=== PATIENT | female | born 2000 | race Caucasian/White ===

== ENCOUNTER → 2020-01-09 17:25 | Outpatient (CLI) | payer MEDICAID, SELFPAY ==
[2020-01-09 20:01] LABS: Chlamydia Trachomatis by PCR Negative (Negative); Neisserai gonorrhoeae by PCR Negative (Negative); Probe Check PASS; Sample Adequacy Control PASS; Specimen Processing Control PASS
== END ==
PROVIDERS: Referring Provider Obstetrics & Gynecology; Visit Provider Obstetrics & Gynecology
DX: Z11.3 Encounter for screening for infections with a predominantly sexual mode of transmission (principal)
CPT/HCPCS: 87491; 87591

== ENCOUNTER → 2020-01-16 15:14 | Outpatient (CLI) | payer MEDICAID, SELFPAY ==
[2020-01-16 17:28] LABS: Color, Urine Yellow (Yellow); Glucose, Dipstick Normal (Normal); Ketone-Dipstick 50 mg/dl (Negative); Leukocyte Esterase-Dipstick 25 /ul (Negative); Nitrite-Dipstick Negative (Negative); Occult Blood-Urine Negative /ul (Negative); Protein-Dipstick Negative (Negative); Specific Gravity, Urine 1.015 (1.002-1.030); Urine Bilirubin Dipstick Negative (Negative); Urine Clarity Sl. Cloudy (Clear); Urine Urobilinogen Normal (Normal); Urine pH 6.5 (5.0 - 8.0)
[2020-01-16 17:31] LABS: Absolute Lymphocyte Count 3.04 X10^3/uL (0.83-4.51); Basophil# 0.03 X10^3/uL; Basophil% 0.2 % (0-1); Eosinophil# 0.21 X10^3/uL; Eosinophils% 1.6 % (0-5); Hematocrit 39.3 % (37-47); Hemoglobin 13.4 g/dL (12.0-15.0); Lymphocyte # 3.04 X10^3/ul (4.0); Mean Corp Hgb Conc 34.1 g/dL (32-36); Mean Corpuscular Hgb 28.3 pg (27.0-32.0); Mean Corpuscular Volume 82.9 fL (81-99); Mean Platelet Vol. 10.7 fl (6.2-12.0); Monocyte# 0.89 X10^3/uL; Monocyte% 6.7 % (0-10); NRBC Flagged by Analyzer 0 % (0-5); Neutrophil # 8.98 X10^3/uL (2.7-7.7); Neutrophil % 68.1 % (47-70); Platelet Count 233 K/mm3 (150-450); RBC Distribution Width CV 12.7 % (11.6-14.6); Red Blood Count 4.74 M/mm3 (4.2-5.4); White Blood Count 13.2 K/mm3 (4.4-11.0)
[2020-01-16 18:08] LABS: Thyroid Stim Hormone (TSH) 1.74 uIU/mL (0.358-3.74)
[2020-01-16 18:29] LABS: Amphetamine Urine VISTA NEGATIVE (<1000 ng/mL); Barbiturate Urine VISTA NEGATIVE (< 200 ng/mL); Benzodiazepine Urine VISTA NEGATIVE (< 200 ng/mL); Cocaine Urine VISTA NEGATIVE (< 300 ng/mL); Ecstacy Urine VISTA NEGATIVE (< 500 ng/mL); Methadone Urine VISTA NEGATIVE (< 300 ng/mL); PCP Urine VISTA NEGATIVE (< 25 ng/mL); THC Urine VISTA NEGATIVE (< 50 ng/mL); Vista UDS pH Range 6
[2020-01-17 09:05] LABS: HIV - WCH Non-Reactive (Nonreactive); Hepatitis B Surface Antigen Non-Reactive (Nonreactive); Hepatitis C Antibody Non-Reactive (Nonreactive); Rubella IgG 62.2 IU/mL
[2020-01-18 02:31] LABS: Prenatal RPR NONREACTIVE (NONREACTIVE)
== END ==
PROVIDERS: Visit Provider Obstetrics & Gynecology
DX: Z34.81 Encounter for supervision of other normal pregnancy, first trimester (principal)
CPT/HCPCS: 36415; 80307; 81002; 84443; 85025; 86703; 86762; 86803; 87340

== ENCOUNTER → 2020-03-12 14:39 | Outpatient (CLI) | payer MEDICAID, SELFPAY ==
[2020-03-12 16:51] LABS: AST(SGOT) 14 U/L (15-37); Alanine Aminotransfer ALT/SGPT 26 U/L (13-56); Albumin, Serum 3.1 g/dL (3.2-5.0); Alkaline Phosphatase 104 U/L (45-117); Bilirubin, Direct 0.15 mg/dL (0.00-0.30); Globulin 3.7 g/dL (2.2-4.2); Protein, Total 6.8 g/dL (6.4-8.2)
== END ==
PROVIDERS: Visit Provider Obstetrics & Gynecology
DX: Z34.82 Encounter for supervision of other normal pregnancy, second trimester (principal); R94.5 Abnormal results of liver function studies
CPT/HCPCS: 36415; 80076

== ENCOUNTER → 2020-05-20 09:45 | Outpatient (CLI) | payer MEDICAID, SELFPAY ==
[2020-05-20 16:48] LABS: Hematocrit 38.4 % (37-47); Hemoglobin 12.4 g/dL (12.0-15.0); Mean Corp Hgb Conc 32.3 g/dL (32-36); Mean Corpuscular Hgb 28.9 pg (27.0-32.0); Mean Corpuscular Volume 89.5 fL (81-99); Mean Platelet Vol. 11.6 fl (6.2-12.0); Platelet Count 162 K/mm3 (150-450); RBC Distribution Width CV 13.3 % (11.6-14.6); RBC Distribution Width SD 43.7 fl (35.1-43.9); Red Blood Count 4.29 M/mm3 (4.2-5.4); White Blood Count 12.1 K/mm3 (4.4-11.0)
[2020-05-20 16:53] LABS: Glucose Challenge Gest 1H 50g 142 mg/dL (70-140)
== END ==
PROVIDERS: Visit Provider Obstetrics & Gynecology
DX: Z34.83 Encounter for supervision of other normal pregnancy, third trimester (principal)
CPT/HCPCS: 36415; 82950; 85027

== ENCOUNTER → 2020-05-22 10:02 | Outpatient (CLI) | payer MEDICAID, SELFPAY ==
[2020-05-22 10:56] LABS: Glucose GTT-Gestation. Fasting 87 mg/dL (<105)
[2020-05-22 12:29] LABS: Glucose GTT-Gestational 1 Hr 122 mg/dL (<190)
[2020-05-22 13:27] LABS: Glucose GTT-Gestational 2 Hr 104 mg/dL (<165)
[2020-05-22 14:17] LABS: Glucose GTT-Gestational 3 Hr 112 L (<145)
== END ==
PROVIDERS: Referring Provider Obstetrics & Gynecology; Visit Provider Obstetrics & Gynecology
DX: O24.812 Other pre-existing diabetes mellitus in pregnancy, second trimester (principal); Z3A.00 Weeks of gestation of pregnancy not specified
CPT/HCPCS: 36415; 82951; 82952

== ENCOUNTER → 2020-07-02 09:54 | Outpatient (CLI) | payer MEDICAID, SELFPAY ==
[2020-07-02 11:26] LABS: Hematocrit 36.1 % (37-47); Hemoglobin 12.2 g/dL (12.0-15.0); Mean Corp Hgb Conc 33.8 g/dL (32-36); Mean Corpuscular Hgb 28.8 pg (27.0-32.0); Mean Corpuscular Volume 85.3 fL (81-99); Mean Platelet Vol. 12.1 fl (6.2-12.0); Platelet Count 141 K/mm3 (150-450); RBC Distribution Width CV 12.9 % (11.6-14.6); RBC Distribution Width SD 39.6 fl (35.1-43.9); Red Blood Count 4.23 M/mm3 (4.2-5.4); White Blood Count 11.2 K/mm3 (4.4-11.0)
[2020-07-02 11:39] LABS: Protein, Urine (Random) 41.9 mg/dL (<11.9); Protein:Creat Ratio 185 mg/g CRE (0-200)
[2020-07-02 11:44] LABS: ALB/GLOB Ratio 0.6 RATIO (0.9-2.4); AST(SGOT) 16 U/L (15-37); Alanine Aminotransfer ALT/SGPT 20 U/L (13-56); Albumin, Serum 2.6 g/dL (3.2-5.0); Alkaline Phosphatase 129 U/L (45-117); Anion Gap 9 (5-15); BUN 9 mg/dL (7-18); BUN/Creat Ratio 14.3 RATIO (10-20); Calcium,Total 8.6 mg/dL (8.5-10.1); Chloride 108 mmol/L (98-107); Creatinine, Serum 0.63 mg/dL (0.55-1.02); EST Glomerular Filtration Rate 128 mL/min (>60); Est Glom Filt Rate - Afr Amer 155 mL/min (>60); Globulin 4.1 g/dL (2.2-4.2); Glucose 78 mg/dL (74-106); LDH 152 U/L (84-246); Potassium 3.6 mmol/L (3.5-5.1); Protein, Total 6.7 g/dL (6.4-8.2); Sodium Level 139 mmol/L (136-145)
== END ==
PROVIDERS: Visit Provider Student in an Organized Health Care Education/Training Program
DX: O21.9 Vomiting of pregnancy, unspecified (principal); Z3A.00 Weeks of gestation of pregnancy not specified
CPT/HCPCS: 36415; 80053; 82570; 83615; 84156; 85027; 87086

== ENCOUNTER → 2020-07-18 15:59 | Outpatient (CLI) | payer MEDICAID, SELFPAY ==
[2020-07-18 17:47] LABS: Hematocrit 36.2 % (37-47); Hemoglobin 12.1 g/dL (12.0-15.0); Mean Corp Hgb Conc 33.4 g/dL (32-36); Mean Corpuscular Hgb 28.7 pg (27.0-32.0); Mean Platelet Vol. 12.7 fl (6.2-12.0); Platelet Count 130 K/mm3 (150-450); RBC Distribution Width CV 12.6 % (11.6-14.6); RBC Distribution Width SD 38.9 fl (35.1-43.9); Red Blood Count 4.21 M/mm3 (4.2-5.4); White Blood Count 11.6 K/mm3 (4.4-11.0)
[2020-07-18 17:54] LABS: Creatinine, Urine (random) < 13.00 mg/dL (NO RANGE EST.); Protein, Urine (Random) < 6.0 mg/dL (<11.9)
[2020-07-18 18:13] LABS: ALB/GLOB Ratio 0.6 RATIO (0.9-2.4); AST(SGOT) 15 U/L (15-37); Alanine Aminotransfer ALT/SGPT 18 U/L (13-56); Albumin, Serum 2.6 g/dL (3.2-5.0); Alkaline Phosphatase 142 U/L (45-117); Anion Gap 8 (5-15); BUN 9 mg/dL (7-18); Calcium,Total 8.7 mg/dL (8.5-10.1); Chloride 108 mmol/L (98-107); Creatinine, Serum 0.75 mg/dL (0.55-1.02); EST Glomerular Filtration Rate 105 mL/min (>60); Est Glom Filt Rate - Afr Amer 127 mL/min (>60); Globulin 4.2 g/dL (2.2-4.2); Glucose 88 mg/dL (74-106); LDH 195 U/L (84-246); Potassium 3.6 mmol/L (3.5-5.1); Protein, Total 6.8 g/dL (6.4-8.2); Sodium Level 138 mmol/L (136-145)
== END ==
PROVIDERS: Visit Provider Student in an Organized Health Care Education/Training Program
DX: Z36.85 Encounter for antenatal screening for Streptococcus B (principal)
CPT/HCPCS: 36415; 80053; 82570; 83615; 84156; 85027; 87081; 87086; 87088

== ENCOUNTER → 2020-08-05 13:10 | Outpatient (CLI) | payer MEDICAID, SELFPAY ==
[2020-08-05 14:40] LABS: Hematocrit 37.2 % (37-47); Hemoglobin 12.6 g/dL (12.0-15.0); Mean Corp Hgb Conc 33.9 g/dL (32-36); Mean Corpuscular Volume 85.5 fL (81-99); Mean Platelet Vol. 13.7 fl (6.2-12.0); Platelet Count 110 K/mm3 (150-450); RBC Distribution Width CV 12.5 % (11.6-14.6); RBC Distribution Width SD 38.5 fl (35.1-43.9); Red Blood Count 4.35 M/mm3 (4.2-5.4); White Blood Count 10.7 K/mm3 (4.4-11.0)
== END ==
PROVIDERS: Visit Provider Student in an Organized Health Care Education/Training Program
DX: Z34.83 Encounter for supervision of other normal pregnancy, third trimester (principal)
CPT/HCPCS: 85027

== ENCOUNTER → 2020-08-13 11:26 | Outpatient (CLI) | payer MEDICAID, SELFPAY | PROVIDERS: Visit Provider Student in an Organized Health Care Education/Training Program | DX: Z36.85 Encounter for antenatal screening for Streptococcus B (principal) | CPT/HCPCS: 87081 ==

== ENCOUNTER → 2020-08-14 09:45 | Outpatient (CLI) | payer MEDICAID, SELFPAY | PROVIDERS: Referring Provider Student in an Organized Health Care Education/Training Program; Visit Provider Student in an Organized Health Care Education/Training Program | DX: Z03.818 Encounter for observation for suspected exposure to other biological agents ruled out (principal) | CPT/HCPCS: 87635; C9803; U0003 ==

== ENCOUNTER 2020-08-19 07:25 | Inpatient (IN) | payer MEDICAID, SELFPAY ==
[2020-08-19] VITALS (13 sets, daily range): BP systolic 117–130; BP diastolic 62–79; PULSE 56–85; TEMP 36.2–36.8; O2SAT 95–99; BMI 37.5
[2020-08-19 08:02] LABS: Absolute Lymphocyte Count 2.76 X10^3/uL (0.83-4.51); Absolute Neutrophil Count 6.9 X10^3/uL (2.0-7.7); Basophil# 0.03 X10^3/uL; Basophil% 0.3 % (0-1); Eosinophil# 0.16 X10^3/uL; Eosinophils% 1.5 % (0-5); Hematocrit 36.9 % (37-47); Hemoglobin 12.8 g/dL (12.0-15.0); Lymphocyte # 2.76 X10^3/ul (4.0); Lymphocyte % 25.5 % (19-41); Mean Corp Hgb Conc 34.7 g/dL (32-36); Mean Corpuscular Hgb 29.1 pg (27.0-32.0); Mean Corpuscular Volume 83.9 fL (81-99); Mean Platelet Vol. 13.1 fl (6.2-12.0); Monocyte# 0.95 X10^3/uL; Monocyte% 8.8 % (0-10); NRBC Flagged by Analyzer 0 % (0-5); Neutrophil # 6.89 X10^3/uL (2.7-7.7); Neutrophil % 63.5 % (47-70); Platelet Count 113 K/mm3 (150-450); RBC Distribution Width CV 12.8 % (11.6-14.6); RBC Distribution Width SD 38.1 fl (35.1-43.9); White Blood Count 10.8 K/mm3 (4.4-11.0)
[2020-08-19] MEDS: miSOPROStol 25 MCG TABLET VAGINAL ×3 (08:26→16:47)
--- NOTE | 2020-08-19 08:30 | PCM.HPOB.BLA ---
History and Physical Date of Admission: 08/19/20 HPI: 20 yo at 41/3w, with KETAN 08/09/20 by LMP, presents for induction of labor for post dates. Denies LOF, VB, contractions. +FM. Denies Yoder, vision changes, chest pain, dyspnea, nausea/emesis. This is complicated by: gestational thrombocytopenia Obstetrical History G1 Past Medical History Denies Medications PNV Past Surgical History Denies Social History Tobacco use: former Alcohol use: denies Illicit drug use: denies Labs Blood type: O neg Rubella: Immune Hep B: neg HIV: neg RPR: nonreactive GBS: Neg 08/13 COVID neg 08/14 Allergies NKDA Review of Systems General: alert and oriented HEENT: _denies change of vision Heart/lungs: _denies CP, SOB GI: _denies nausea, vomiting, dysuria, diarrhea MSK: _denies calf pain, tenderness Physical Exam Vital Signs Temp Pulse BP Pulse Ox 08/19/20 08:31 74 122/69 H 08/19/20 08:28 97.5 F L 85 96 General: a&o x3, NAD HEENT: normocephalic, atraumatic Cardio: no JVD Resp: no increased work in breathing Abdomen: soft, gravid, nontender Extremities: minimal-moderate edema CE: 1 cm per RN FHT: 135/mod david/+accel/no decel [place]: quiet Labs Laboratory Tests 08/19/20 Range/Units 07:50 WBC 10.8 (4.4-11.0) K/mm3 RBC 4.40 (4.2-5.4) M/mm3 Hgb 12.8 (12.0-15.0) g/dL Hct 36.9 L (37-47) % MCV 83.9 (81-99) fL MCH 29.1 (27.0-32.0) pg MCHC 34.7 (32-36) g/dL RDW Std Deviation 38.1 (35.1-43.9) fl RDW Coeff of David 12.8 (11.6-14.6) % Plt Count 113 L (150-450) K/mm3 MPV 13.1 H (6.2-12.0) fl Immature Gran % (Auto) 0.400 (0.0-0.9) % Neut % (Auto) 63.5 (47-70) % Lymph % (Auto) 25.5 (19-41) % [facility] % (Auto) 8.8 (0-10) % Eos % (Auto) 1.5 (0-5) % Baso % (Auto) 0.3 (0-1) % Absolute Neuts (auto) 6.9 (2.0-7.7) X10^3/uL Absolute Lymphs (auto) 2.76 (0.83-4.51) X10^3/uL Nucleated RBC % 0 (0-5) % Assessment & Plan 20 yo at 41/3w, with KETAN 08/09/20 by LMP, presents for induction of labor for post dates. This is complicated by: gestational thrombocytopenia. Cytotec induction, will transition to pitocin after.
[2020-08-19] MEDS: Oxytocin 30 units/NS 500 ml 30 UNITS/500 ML IV.SOLN IV (21:06)
[2020-08-19] MEDS: Lactated Ringers 1,000 ML 50 ML IV (21:06)
[2020-08-19] MEDS: 0.9% Saline Lock 10 ML Syringe IV (21:06)
[2020-08-20] VITALS (56 sets, daily range): BP systolic 96–144; BP diastolic 58–93; PULSE 48–112; TEMP 36.4–38.4; O2SAT 92–100
--- NOTE | 2020-08-20 08:23 | PCM.PN.BLA ---
Progress Note Pt seen. Tired, but not uncomfortable. CE per nursing 4 cm. FHR 130/mod alexus/+accel/no decel, toco q3 pit at 16. Cat I. Continue current. Pt declined AROM this morning, will do this afternoon. STROKE Vital Signs/Narrative: Vital Signs Temp Pulse BP Pulse Ox 08/20/20 08:08 98.3 F 81 122/77 H 97 08/20/20 07:21 97.5 F L 08/20/20 07:20 97.6 F L 61 129/66 H 97 08/20/20 06:11 98.2 F 08/20/20 06:10 89 144/90 H 98 08/20/20 05:16 98.1 F 66 132/88 H 98
[2020-08-20] MEDS: Ondansetron 4 MG/2 ML Vial IV (10:43)
[2020-08-20] MEDS: hydrOXYzine PAM 25 MG Capsule PO (13:19)
[2020-08-20] MEDS: fentaNYL 100 MCG/2 ML Ampul IV (14:03)
[2020-08-20] MEDS: Lactated Ringers 500 ML 999 ML IV (15:10)
[2020-08-20] MEDS: Lactated Ringers 1,000 ML 50 ML IV (15:15)
[2020-08-20] MEDS: fentaNYL-bupivacaine (epidural) 100 ML BAG EPIDURAL ×2 (16:25→20:36)
[2020-08-20] MEDS: Lactated Ringers 1,000 ML 200 ML IV (20:35)
--- NOTE | 2020-08-20 20:48 | PCM.PN.BLA ---
Progress Note LABOR PROGRESS NOTE No complaints. Comfortable with epidural. AVSS GEN - NAD, AAO x 3 FHR 130, minimal variability, no accelerations, no decelerations TOCO 3/10 min SVE FD/100/+1 per RN Sobeida Alcala A/P: 20yo G1 @ 41 4/7 in labor, Cat II FHR - status overall reassuring -Start pushing STROKE Vital Signs/Narrative: Vital Signs Temp Pulse BP Pulse Ox 08/20/20 19:22 98.6 F 79 118/78 100 08/20/20 17:10 60 114/65 08/20/20 16:50 83 131/87 H
[2020-08-20] MEDS: Oxytocin 30 units/NS 500 ml 30 UNITS/500 ML IV.SOLN 334 UNITS IV (21:38)
--- NOTE | 2020-08-20 22:09 | PCM.OPRPT ---
Problem List (1) 41 weeks gestation of Status: Acute (2) (spontaneous vaginal delivery) Status: Acute Vaginal Delivery Maternal Presentation: Medically Indicated Induction Method of Induction: Pitocin, Amniotomy, Cytotec Medical Reason for Induction: - - Late term Amniotic Membrane Rupture Type: Artificial Rupture of Membrane time: 08/20/20 1245h Amniotic Fluid Description: Clear Final KETAN: 08/09/20 Final KETAN Source: US <20 weeks Gestational age: 41 Weeks and 4 Days Date of Procedure: 08/20/20 Pre-Operative Diagnosis: 41 4/7 wga Post-Operative Diagnosis: 41 4/7wga Surgery/ Procedure Performed: Spontaneous Vaginal Delivery Anesthesiologist: Mandy Scott Type of Anesthesia: Epidural Description of Procedure: Patient was FD/+ 3 on my arrival and pushed to deliver a vigorous male infant. No nuchal cord. The infant was placed on the maternal abdomen and further attended by nursery personnel. The cord was doubly clamped and cut at 3 minutes of life. Cord blood specimen collected. The placenta delivered spontaneously and appeared intact on inspection. A first degree perineal laceration with vaginal and left labial extension was repaired with 3-0 Vicryl Rapide with good hemostasis. Sponge and needle counts were correct x 2. Presentation: Vertex Placental Delivery Description: Spontaneous Placenta Disposition: [facility] Cord Vessel Description: 3 Vessels Nuchal Cord Compression: Without compression Cord Entanglement: None Drain: Moser to straight drain Estimated Blood Loss: 150 ml A gender: Male (1 minute): 8 (5 minute): 9 Episiotomy Description: None Laceration: Midline, Perineal Extension/lac Medications given after delivery: IV Pitocin Complications: None
[2020-08-21 03:25] VITALS: BP 108/62; PULSE 76; RESP 16; TEMP 36.2; O2SAT 97
[2020-08-21] MEDS: Ibuprofen 600 MG Tablet PO ×2 (06:15→17:20)
[2020-08-21 07:58] VITALS: BP 117/59; PULSE 58; RESP 18; TEMP 36.6
[2020-08-21] MEDS: Acetaminophen 500 MG Tablet PO ×2 (11:19→22:22)
[2020-08-21] MEDS: Prenatal Vits Tablet 1 TABLET PO (11:20)
[2020-08-21 12:45] VITALS: BP 123/66; PULSE 76; RESP 18; TEMP 36.6
--- NOTE | 2020-08-21 14:42 | PCM.PN.OB ---
Patient Problems: Active and Suspected Problems 41 weeks gestation of (Acute) (spontaneous vaginal delivery) (Acute) Subjective: Patient without complaints. Breast-feeding going well. Wants to stay until tomorrow. - Physical Exam Vitals/I&O's: Vital Signs Temp Pulse Resp BP Pulse Ox 97.9 F 76 18 123/66 H 97 08/21/20 12:45 08/21/20 12:45 08/21/20 12:45 08/21/20 12:45 08/21/20 03:25 Oxygen Delivery Method Room Air Weight: 211 lb 13.828 oz Body Mass Index (BMI) 37.5 Intake and Output for Last 24 Hours 08/19/20 08/20/20 08/21/20 23:59 23:59 23:59 Intake Total 6.60 / 6.60 3462.48 / 3462.48 Output Total 450 / 450 1400 / 1400 Balance 6.60 / 6.60 3012.48 / 3012.48 -1400 / -1400 Current Medications Acetaminophen (Acetaminophen 500 Mg Tablet) 500 - 1,000 mg PO Q6H PRN PRN PRN Reason: Pain Score 1-3 Last Admin: 08/21/20 11:19 Dose: 1,000 mg Documented by: Bisacodyl (Bisacodyl 10 Mg Suppository) 10 mg RECTAL UD PRN PRN Reason: If no BM Dibucaine (Dibucaine 30 Gm Tube) 1 applic TOPICAL TID PRN PRN; Protocol PRN Reason: Discomfort Hydrocortisone (Hydrocortisone 2.5% Crm) 1 applic TOPICAL TID PRN PRN; Protocol PRN Reason: Discomfort Ibuprofen (Ibuprofen 600 Mg Tablet) 600 mg PO Q6H PRN PRN PRN Reason: Pain Score 1-3 Last Admin: 08/21/20 06:15 Dose: 600 mg Documented by: Methylergonovine Maleate (Methylergonovine 0.2 Mg/Ml Ampul) 0.2 mg IM X1 PRN PRN Reason: Excess bleeding/uterine atony Ondansetron HCl (Ondansetron 4 Mg/2 Ml Vial) 4 mg IV Q4H PRN PRN PRN Reason: NAUSEA Last Admin: 08/20/20 10:43 Dose: 4 mg Documented by: Multivit/Folic Acid/Iron ( Vits Tablet) 1 tablet PO DAILY@1200 TITO Last Admin: 08/21/20 11:20 Dose: 1 tablet Documented by: Senna/Docusate Sodium (Senna/Docusate Sodium 1 Tablet) 1 - 2 tablet PO DAILY PRN PRN PRN Reason: Constipation Simethicone (Simethicone 80 Mg Tablet) 80 mg PO PCHS PRN PRN Reason: Indigestion/Stomach pain Sodium Chloride (0.9% Saline Lock 10 Ml Syringe) 5 - 15 ml IV UD PRN PRN Reason: SALINE FLUSH Medical Necessity - Tobacco Use Smoking Status: Former smoker Assessment/Plan All Active Problems 41 weeks gestation of (Acute) (spontaneous vaginal delivery) (Acute) Doing well day #1 status post routine spontaneous vaginal delivery. Continuing present care.
[2020-08-21 16:50] VITALS: BP 112/69; PULSE 74; RESP 18; TEMP 36.6
[2020-08-21 20:00] VITALS: BP 123/65; PULSE 72; RESP 18; TEMP 36.2
[2020-08-22 02:30] VITALS: BP 129/73; PULSE 76; RESP 18; TEMP 36.4
[2020-08-22] MEDS: Ibuprofen 600 MG Tablet PO ×2 (02:53→12:57)
--- NOTE | 2020-08-22 07:34 | PCM.PN.OB ---
Patient Problems: Active and Suspected Problems 41 weeks gestation of (Acute) (spontaneous vaginal delivery) (Acute) Subjective: No overnight complaints. Pain well controlled. Minimal lochia. - Physical Exam Vitals/I&O's: Vital Signs Temp Pulse Resp BP Pulse Ox 97.6 F L 76 18 129/73 H 97 08/22/20 02:30 08/22/20 02:30 08/22/20 02:30 08/22/20 02:30 08/21/20 03:25 Oxygen Delivery Method Room Air Weight: 211 lb 13.828 oz Body Mass Index (BMI) 37.5 Intake and Output for Last 24 Hours 08/20/20 08/21/20 08/22/20 23:59 23:59 23:59 Intake Total 3462.48 / 3462.48 Output Total 450 / 450 1400 / 1400 Balance 3012.48 / 3012.48 -1400 / -1400 General: Alert, Oriented x3, Cooperative, No apparent distress HEENT: Atraumatic, PERRLA, Normocephalic Oral: Moist Mucosa Neck: Supple, No JVD Abdomen: Soft, Non Tender, - - Fundus firm and below umbilicus Extremities: No clubbing, No cyanosis, No edema Neurological: Neuro grossly intact Psych/Mental Status: Normal Affect, Appropriate, Alert and oriented to time, place, person, mood and affect Current Medications Acetaminophen (Acetaminophen 500 Mg Tablet) 500 - 1,000 mg PO Q6H PRN PRN PRN Reason: Pain Score 1-3 Last Admin: 08/21/20 22:22 Dose: 1,000 mg Documented by: Bisacodyl (Bisacodyl 10 Mg Suppository) 10 mg RECTAL UD PRN PRN Reason: If no BM Dibucaine (Dibucaine 30 Gm Tube) 1 applic TOPICAL TID PRN PRN; Protocol PRN Reason: Discomfort Hydrocortisone (Hydrocortisone 2.5% Crm) 1 applic TOPICAL TID PRN PRN; Protocol PRN Reason: Discomfort Ibuprofen (Ibuprofen 600 Mg Tablet) 600 mg PO Q6H PRN PRN PRN Reason: Pain Score 1-3 Last Admin: 08/22/20 02:53 Dose: 600 mg Documented by: Methylergonovine Maleate (Methylergonovine 0.2 Mg/Ml Ampul) 0.2 mg IM X1 PRN PRN Reason: Excess bleeding/uterine atony Ondansetron HCl (Ondansetron 4 Mg/2 Ml Vial) 4 mg IV Q4H PRN PRN PRN Reason: NAUSEA Last Admin: 08/20/20 10:43 Dose: 4 mg Documented by: Multivit/Folic Acid/Iron ( Vits Tablet) 1 tablet PO DAILY@1200 TITO Last Admin: 08/21/20 11:20 Dose: 1 tablet Documented by: Senna/Docusate Sodium (Senna/Docusate Sodium 1 Tablet) 1 - 2 tablet PO DAILY PRN PRN PRN Reason: Constipation Simethicone (Simethicone 80 Mg Tablet) 80 mg PO PCHS PRN PRN Reason: Indigestion/Stomach pain Sodium Chloride (0.9% Saline Lock 10 Ml Syringe) 5 - 15 ml IV UD PRN PRN Reason: SALINE FLUSH Medical Necessity - Tobacco Use Smoking Status: Former smoker Assessment/Plan All Active Problems 41 weeks gestation of (Acute) (spontaneous vaginal delivery) (Acute) day 2. Pain well controlled. Breast-feeding. Gestational thrombocytopenia. Okay to discharge home today.
--- NOTE | 2020-08-22 07:35 | DCINST_ITS ---
Discharge Diet: No Restrictions Discharge Activity: Return to Normal Activity, No Restrictions, May Drive, May Shower May resume sexual activity in: 2 weeks Weight Bearing Status: Weight bearing as tolerated Call your doctor if your incision/area has: Foul Smelling Discharge Call your doctor if you observe: Fever of 101 or Higher, Shortness of breath, Chest pain Additional Instructions: If you experience any of the following, contact your healthcare provider. * Bleeding that soaks a pad every hour for 2 hours * Fever 100.4 or higher * Unrelieved incision or abdominal pain * Swelling, redness, discharge or bleeding from your incision or episiotomy site * Your incision begins to separate * Problems urinating (including inability to urinate or burning while urinating). * Visual changes * Severe headache * Flu-like symptoms * Pain or redness in one of both of your breasts * Pain, warmth, tenderness or swelling in your legs, especially the calf area * Frequent nausea and vomiting * Symptoms of depression or anxiety If you experience any of the following, call 911 or go to the nearest Emergency Room. * Chest pain * Problems breathing * Seizure activity * Partial or complete paralysis of a body part, slurred speech, weakness or drooping of the face, or a sudden inability to walk or hold your balance Allergies/Adverse Reactions: Allergies No Known Allergies Allergy (Verified 08/19/20 07:33) Medications to take at Discharge Prenatabs FA 08/19/20 Ibuprofen [Motrin] 600 mg PO Q8H PRN PRN #30 tab 08/21/20 Please Follow Up With: Dennis Taylor MD When: 6 weeks Primary Care Physician: Care Physician,No Primary [Primary Care Provider] - Test Results: Test results from this visit will be discussed in further detail at your follow- up appointment, if applicable. Proposed Discharge Date: 08/22/20
--- NOTE | 2020-08-22 07:35 | PCM.DCVAG ---
Discharge Diet: No Restrictions Discharge Activity: Return to Normal Activity, No Restrictions, May Drive, May Shower May resume sexual activity in: 2 weeks Weight Bearing Status: Weight bearing as tolerated Call your doctor if your incision/area has: Foul Smelling Discharge Call your doctor if you observe: Fever of 101 or Higher, Shortness of breath, Chest pain Additional Instructions: If you experience any of the following, contact your healthcare provider. Bleeding that soaks a pad every hour for 2 hours Fever 100.4 or higher Unrelieved incision or abdominal pain Swelling, redness, discharge or bleeding from your incision or episiotomy site Your incision begins to separate Problems urinating (including inability to urinate or burning while urinating). Visual changes Severe headache Flu-like symptoms Pain or redness in one of both of your breasts Pain, warmth, tenderness or swelling in your legs, especially the calf area Frequent nausea and vomiting Symptoms of depression or anxiety If you experience any of the following, call 911 or go to the nearest Emergency Room. Chest pain Problems breathing Seizure activity Partial or complete paralysis of a body part, slurred speech, weakness or drooping of the face, or a sudden inability to walk or hold your balance Allergies/Adverse Reactions: Allergies No Known Allergies Allergy (Verified 08/19/20 07:33) Medications to take at Discharge Prenatabs FA 08/19/20 Ibuprofen [Motrin] 600 mg PO Q8H PRN PRN #30 tab 08/21/20 Please Follow Up With: Dennis Taylor MD When: 6 weeks Primary Care Physician: Care Physician,No Primary [Primary Care Provider] - Test Results: Test results from this visit will be discussed in further detail at your follow-up appointment, if applicable. Proposed Discharge Date: 08/22/20
[2020-08-22 08:35] VITALS: BP 115/54; PULSE 78; RESP 16; TEMP 36.8; O2SAT 97
[2020-08-22] MEDS: Acetaminophen 500 MG Tablet PO ×2 (08:58→18:45)
[2020-08-22] MEDS: Prenatal Vits Tablet 1 TABLET PO (12:14)
[2020-08-22 20:26] VITALS: BP 131/84; PULSE 82; RESP 16; TEMP 36.8; O2SAT 96
== END 2020-08-22 21:40 | disposition home or self-care (01) | DRG 560 ==
PROVIDERS: Admitting Provider Student in an Organized Health Care Education/Training Program; Referring Provider Student in an Organized Health Care Education/Training Program; Visit Provider Student in an Organized Health Care Education/Training Program
DX: O48.0 Post-term pregnancy (principal); Z37.0 Single live birth; Z3A.41 41 weeks gestation of pregnancy; O70.0 First degree perineal laceration during delivery; Z87.891 Personal history of nicotine dependence; D69.59 Other secondary thrombocytopenia; O99.12 Other diseases of the blood and blood-forming organs and certain disorders involving the immune mechanism complicating childbirth
CPT/HCPCS: 59025; 59050; 85025; 86850; 86900; 86901; 99218; J7120; A4216; G0378; J2405